=== PATIENT | female | born 1980 | race Caucasian/White ===

== ENCOUNTER 2017-05-18 17:45 | Emergency (ER) | payer OTHER, MEDICAID ==
[~2017-05-18] VITALS: Ht 165.1 cm; Wt 117.9 kg
[~2017-05-18 17:45] MED LIST: AMBIEN 10 MG TA10 MG PO; DESYREL300 MG PO; FLEXERIL PO; GENTAMICIN SU3 MG/ML OPHTHALMIC; GEODON40 MG PO; HYDROCHLOROTH12.5 M1 PO; IBUPROFEN 800800 M1 PO; LEVOTHYROXIN0.125 M1 PO; NAPROSYN500 MG PO; NEURONTIN 300300 M1 PO; NORCO 5-325 TA1 EAC1 PO; NORCO 5-325 TA1 EACH PO; PENICILLIN V P500 MG PO; PERCOCET 5-3251 EACH PO; PRINIVIL20 MG PO; REQUIP 0.25 M0.25 MG PO; VALIUM10 MG PO; XANAX 0.25 MG0.25 MG PO; ZOLOFT100 MG PO
[2017-05-18 18:35] LABS: ABSOLUTE BASOPHILS 0.1 thou/uL (0.0-0.2); ABSOLUTE EOSINOPHILS 0.1 thou/uL (0.0-0.7); ABSOLUTE LYMPHOCYTES 2.5 thou/uL (0.8-5.3); ABSOLUTE MONOCYTES 0.7 thou/uL (0.0-1.2); ABSOLUTE NEUTROPHILS 9.3 thou/uL (1.6-8.1); BASOPHILS 0.7 %; EOSINOPHILS 0.6 %; HEMATOCRIT 40.4 % (37.0-47.0); LYMPHOCYTES 20.2 %; MCH 24.9 pg (26.0-34.0); MCHC 32.1 g/dL (28.0-37.0); MCV 77.8 fL (80.0-100.0); MONOCYTES 5.2 %; MPV 7.4 fl. (7.2-11.1); NUCLEATED RBCS 0 /100WBC; PLATELET COUNT* 280 thou/uL (150-400); POLYS 73.3 %; RDW-CV 18.9 % (10.5-14.5); WBC 12.6 thou/uL (4.0-11.0)
[2017-05-18 18:36] LABS: URINE BILIRUBIN NEGATIVE (Negative); URINE BLOOD NEGATIVE (Negative); URINE CLARITY CLEAR; URINE COLOR YELLOW; URINE GLUCOSE-RANDOM NEGATIVE (Negative); URINE KETONES NEGATIVE (Negative); URINE LEUKOCYTES-REFLEX NEGATIVE (Negative); URINE NITRITE-REFLEX NEGATIVE (Negative); URINE PROTEIN NEGATIVE (Negative); URINE SPECIFIC GRAVITY 1.025 (1.005-1.030); URINE UROBILINOGEN 0.2 E.U./dl (0.2-1.0)
[2017-05-18 18:42] LABS: CALCIUM 9.9 mg/dL (8.5-10.1); POTASSIUM 3.8 mmol/L (3.5-5.1)
[2017-05-18 18:44] LABS: AMP/METHAMP Negative (Negative); BARBITURATES Negative (Negative); BENZODIAZEPINES Negative (Negative); COCAINE Negative (Negative); METHADONE Negative (Negative); OPIATES Negative (Negative); PCP Negative (Negative); THC Negative (Negative)
[2017-05-18 18:47] LABS: ALBUMIN 3.5 g/dL (3.4-5.0); TOTAL BILIRUBIN 0.5 mg/dL (<0.1-1.0); TOTAL PROTEIN 7.4 g/dL (6.4-8.2)
[2017-05-18] MEDS ORDERED: ACETAMINOPHEN-1 EAC1 PO (19:19)
[2017-05-18] MEDS ORDERED: NORFLEX100 MG PO (19:19)
[2017-05-18 20:00] VITALS: BP 120/82
== END 2017-05-18 20:03 | disposition home or self-care (01) ==
LOC: M.ERS 17:45
PROVIDERS: Nurse Practitioner
DX: M54.5 Low back pain (principal); E03.9 Hypothyroidism, unspecified; I10 Essential (primary) hypertension; Z90.710 Acquired absence of both cervix and uterus; Z88.8 Allergy status to other drugs, medicaments and biological substances

== ENCOUNTER 2017-11-08 13:22 | Emergency (ER) | payer OTHER ==
[~2017-11-08] VITALS: Ht 165.1 cm; Wt 94.3 kg
[~2017-11-08 13:22] MED LIST changes: +ACETAMINOPHEN-1 EAC1 PO; +NORFLEX100 MG PO
[2017-11-08] MEDS ORDERED: ZOLOFT50 MG PO (13:34)
[2017-11-08] MEDS ORDERED: SYNTHROID175 MCG PO (13:34)
[2017-11-08] MEDS ORDERED: ACETAMINOPHEN-1 EAC1 PO (15:32)
[2017-11-08 15:51] VITALS: BP 169/110
== END 2017-11-08 15:53 | disposition home or self-care (01) ==
LOC: M.ERS 13:22
DX: S62.602A Fracture of unspecified phalanx of right middle finger, initial encounter for closed fracture (principal); S93.601A Unspecified sprain of right foot, initial encounter; M25.511 Pain in right shoulder; W01.0XXA Fall on same level from slipping, tripping and stumbling without subsequent striking against object, initial encounter; Y93.89 Activity, other specified; Y92.89 Other specified places as the place of occurrence of the external cause; Y99.8 Other external cause status; E03.9 Hypothyroidism, unspecified; I10 Essential (primary) hypertension